=== PATIENT | male | born 1985 | race Caucasian/White ===

== ENCOUNTER 2017-05-22 23:09 | Emergency (ER) | payer MEDICAID ==
[~2017-05-22] VITALS: Ht 165.1 cm; Wt 78.8 kg
[2017-05-22 23:21] VITALS: BP 129/84; PULSE 67; RESP 16; TEMP 98.9; O2SAT 98
[2017-05-23] MEDS ORDERED: NORC5TAB PO (01:52)
[2017-05-23] MEDS ORDERED: AMOX500T PO (01:53)
--- NOTE | 2017-05-23 01:53 | PD ---
HPI Chief Complaint: Oral / Dental Pain or Problem Time Seen by Provider: 01:40 Travel History International Travel<30 days: No Contact w/Intl Traveler<30days: No Traveled to known affect area: No History of Present Illness HPI The patient is a 32-year-old male that complains of mouth pain for 2 days. He states he wants some amoxicillin for the pain and refuses any shot. He refuses any needle injection. He states he made an appointment with a dentist back in [place] where he lives. He has no insurance. He requests [place] and an antibiotic-amoxicillin. He states he is already tried nonsteroidal anti- inflammatory drugs and they do not work. He refuses any kind of injection around the teeth or antibiotic injection. PFSH Past Medical History ADHD: Yes Tetanus Vaccination: Unknown Influenza Vaccination: No Past Surgical History Eye Surgery: Yes Social History Alcohol Use: Yes Tobacco Use: Yes (4 cigs/day) Substance Use: Yes ("alittle weed") Allergies-Medications (Allergen,Severity, Reaction): Coded Allergies: No Known Allergies (Unverified , 05/23/17) Reported Meds & Prescriptions Reported Meds & Active Scripts Active Amoxicillin 500 Mg Tab 500 Mg PO TID 10 Days [place] (Hydrocodone-Acetaminophen) 5-325 mg Tab 1 Tab PO Q4H PRN Physical Exam Narrative GENERAL: Well-nourished, well-developed patient who appears in moderate apparent distress with his dental pain. His vital signs are normal. SKIN: Focused skin assessment warm/dry. No needle tracks nor wrist slash gomez are present. HEAD: Normocephalic. EYES: No scleral icterus. No injection or drainage. NECK: Supple, trachea midline. No JVD or lymphadenopathy. CARDIOVASCULAR: Regular rate and rhythm without murmurs, gallops, or rubs. RESPIRATORY: Breath sounds equal bilaterally. No accessory muscle use. GASTROINTESTINAL: Abdomen soft, non-tender, nondistended. MUSCULOSKELETAL: No cyanosis, or edema. BACK: Nontender without obvious deformity. No CVA tenderness. DENTAL: No loose or chipped teeth. No malocclusion. Teeth #16 and 17 both appear broken down but no drainable abscesses are seen. Data Data Last Documented VS Vital Signs Date Time Temp Pulse Resp B/P (MAP) Pulse Ox O2 Delivery O2 Flow Rate FiO2 05/22/17 23:21 98.9 67 16 129/84 (99) 98 Orders Orders Amoxicillin (Trimox) (05/23/17 02:00) Oxycodone-Acetamin 7.5-325 Mg (Percocet (05/23/17 02:00) MDM Medical Decision Making Medical Screen Exam Complete: Yes Emergency Medical Condition: Yes Medical Record Reviewed: Yes Differential Diagnosis Dental pain, drug seeking behavior, drainable dental abscess, non-drainable dental abscess Narrative Course Patient will be given a 12 [place] tablets. He will be given amoxicillin 500 mg 3 times daily for 10 days. He will need to see a dentist. He is not to drink alcohol or drive on the [place]. The patient refuses Toradol shot and refuses Rocephin shot and refuses lidocaine to numb up the root. Diagnosis Primary Impression: Dental infection Additional Instructions: The patient needs to follow-up with a dentist in the antibiotic is taken 3 times daily for 10 days. He should take Motrin, 800 mg 3 times daily regularly. Med/Other Pt SpecificInfo: Prescription(s) given Scripts Amoxicillin (Amoxicillin) 500 Mg Tab 500 MG PO TID for Infection for 10 Days, TAB 0 Refills Prov: Jermaine Cee MD 05/23/17 Hydrocodone-Acetaminophen ([place]) 5-325 mg Tab 1 TAB PO Q4H Y for PAIN, #12 TAB 0 Refills Prov: Jermaine Cee MD 05/23/17 Disposition: 01 DISCHARGE HOME Condition: Stable Jermaine Cee MD May 23, 2017 01:53
[2017-05-23] MEDS ORDERED: oxyCODONE/ACETAMINOPHEN 7.5 MG/325 MG TAB PO ONE (02:00)
[2017-05-23] MEDS ORDERED: AMOXICILLIN 875 MG TAB PO ONE (02:00)
[2017-05-23 02:19] VITALS: BP 145/94; PULSE 60; RESP 20; O2SAT 100
[2017-05-23 02:46] VITALS: RESP 18
== END 2017-05-23 02:47 | disposition home or self-care (01) ==
LOC: PHED 23:09
DX: K04.7 Periapical abscess without sinus (principal); F17.210 Nicotine dependence, cigarettes, uncomplicated
CPT/HCPCS: 99284